=== PATIENT | male | born 1965 | race Caucasian/White ===

== ENCOUNTER 2022-08-05 11:46 | Outpatient (CLI) | payer OTHER | END 2022-08-05 15:37 | disposition home or self-care (01) | LOC: LAB 11:46 | PROVIDERS: ATTEND Urology | DX: R97.20 Elevated prostate specific antigen [PSA] (principal) ==

== ENCOUNTER 2022-09-03 07:09 | Outpatient (CLI) | payer OTHER | END 2022-09-03 12:53 | disposition home or self-care (01) | LOC: SONOGRAMA 07:09 | PROVIDERS: ATTEND Urology | DX: C61 Malignant neoplasm of prostate (principal); D29.1 Benign neoplasm of prostate; D40.0 Neoplasm of uncertain behavior of prostate ==